=== PATIENT | female | born 1985 | race Caucasian/White ===

== ENCOUNTER 2018-05-09 18:47 | Emergency (ER) | payer SELFPAY ==
[~2018-05-09] VITALS: Ht 152.4 cm; Wt 61.7 kg
[2018-05-09 18:54] VITALS: Ht 152.4 cm; Wt 61.7 kg
[2018-05-09 20:09] LABS: urine erythrocyte NEGATIVE (NEGATIVE)
[2018-05-09 20:14] LABS: microscopic required? YES
[2018-05-09 20:43] LABS: BASOPHIL % 0.2 % (0-2); PLATELET COUNT 320 x10^3mcL (130-400); RED CELL DISTRIBUTION WIDTH 13.6 % (11.5-14.5)
[2018-05-09 20:47] LABS: CALCIUM 8.9 mg/dL (8.5-10.1); CARBON DIOXIDE 26.5 mmol/L (21-32); CHLORIDE SERUM 105 mmol/L (98-107); CREATININE SERUM 0.7 mg/dL (0.6-1.0); GFR1 > 60 mL/min; GLUCOSE SERUM 82 mg/dL (74-106); POTASSIUM SERUM 3.3 mmol/L (3.5-5.1); SODIUM SERUM 140 mmol/L (136-145)
[2018-05-09 21:01] LABS: ALKALINE PHOSPHATASE 107 U/L (46-116); ALT/SGPT 17 U/L (14-59); AST/SGOT 14 U/L (15-37); T4(THYROXINE) 6.8 ug/dL (4.7-13.3); TOTAL PROTEIN, SERUM 7.5 g/dL (6.4-8.2)
[2018-05-09 21:53] VITALS: BP 117/73
== END 2018-05-09 21:53 | disposition home or self-care (01) ==
LOC: ED 18:47
PROVIDERS: Emergency Medicine
DX: F43.9 Reaction to severe stress, unspecified (principal); R53.1 Weakness
CPT/HCPCS: J7030